=== PATIENT | male | born 1965 | race Caucasian/White ===

== ENCOUNTER 2020-12-24 19:58 | Emergency (ER) | payer OTHER ==
[~2020-12-24] VITALS: Ht 160 cm; Wt 97.5 kg
[2020-12-24 20:10] VITALS: BP 159/103
[2020-12-24] MEDS ORDERED: DICYCLOMINE 10 MG CAP PO ONE (20:15)
[2020-12-24] MEDS ORDERED: ONDANSETRON 4 MG/2 ML VIAL IVP ONE (20:15)
[2020-12-24] MEDS ORDERED: KETOROLAC 30 MG/ML VIAL IVP ONE (20:15)
--- NOTE | 2020-12-24 20:16 | NUR ---
PT TAKEN TO BED 4
--- NOTE | 2020-12-24 20:30 | NUR ---
ULTRASOUND AT BEDSIDE
[2020-12-24 20:38] LABS: BASOPHILS # (AUTO) 0.1 K/uL (0.00-0.22); BASOPHILS % (AUTO) 1.1 % (0.0-2.0); EOSINOPHILS # (AUTO) 0.1 K/uL (0-0.4); EOSINOPHILS % (AUTO) 0.7 % (0.0-4.0); HEMATOCRIT 46.2 % (36-52); HEMOGLOBIN 16.3 g/dL (12.0-18.0); LYMPHOCYTES # (AUTO) 1.2 K/uL (2.0-11.5); MEAN CORPUSCULAR HEMOGLOBIN 33 pg (27-31); MEAN CORPUSCULAR HGB CONC 35 g/dL (33-37); MEAN CORPUSCULAR VOLUME 91.8 fL (80-94); MONOCYTES # (AUTO) 0.8 K/uL (0.8-1.0); MONOCYTES % (AUTO) 8.6 % (1.7-9.3); NEUTROPHILS # (AUTO) 6.6 K/uL (1.8-7.7); NEUTROPHILS % (AUTO) 75.6 % (42.2-75.2); PLATELET COUNT (AUTO) 200 K/uL (140-450); RED BLOOD CELL COUNT(AUTO) 5.03 MIL/uL (4.20-6.10); RED CELL DISTRIBUTION WIDTH 12.9 % (11.6-13.7); WHITE BLOOD COUNT (AUTO) 8.8 K/uL (4.8-10.8)
[2020-12-24 20:54] LABS: ALBUMIN 3.6 g/dL (3.4-5.0); ANION GAP 12.8 (8-16); CARBON DIOXIDE 25.3 mmol/L (21-32); POTASSIUM 4.1 mmol/L (3.5-5.1); TOTAL BILIRUBIN 1.1 mg/dL (0.0-1.0)
--- NOTE | 2020-12-24 21:47 | NUR ---
Dr. Barrow examining patient.
[2020-12-24] MEDS ORDERED: ONDA-188 PO (21:56)
[2020-12-24] MEDS ORDERED: BEN10 PO (21:56)
[2020-12-24] MEDS ORDERED: OMEP20EC11 PO (21:56)
--- NOTE | 2020-12-24 22:32 | NUR ---
IV removed, catheter intact and site benign. Applied folded 4x4 gauze and tape to stop bleeding.
--- NOTE | 2020-12-24 22:35 | NUR ---
Patient discharged with v/s stable. Written and verbal after care instructions given and explained. Patient alert, oriented and verbalized understanding of instructions. Ambulatory with steady gait. All questions addressed prior to discharge. ID band removed. Patient advised to follow up with PMD. Rx of BENTYL, PRILOSEC, & ZOFRAND ODT given. Patient educated on indication of medication including possible reaction and side effects. Opportunity to ask questions provided and answered.
[2020-12-24 22:36] VITALS: BP 123/83
== END 2020-12-24 22:35 | disposition home or self-care (01) ==
LOC: MED 19:58
DX: K52.9 Noninfective gastroenteritis and colitis, unspecified (principal); R19.7 Diarrhea, unspecified; E78.00 Pure hypercholesterolemia, unspecified
CPT/HCPCS: 36415; 76705; 80053; 83690; 85025; 96374; 96375; 99284; J1885; J2405; Q0092